=== PATIENT | male | born 1960 | race Caucasian/White ===

== ENCOUNTER 2016-11-13 09:31 | Emergency (ER) | payer SELFPAY ==
[2016-11-13 09:40] VITALS: BP 127/79; PULSE 78; RESP 20; TEMP 98; O2SAT 98
--- NOTE | 2016-11-13 09:58 | C.PDOC ---
History Of Present Illness Documentation on down time paper chart Disregard everything except the Dispo section Time Seen by Provider: 11/13/16 09:54 Chief Complaint (Nursing): Eye Problem Past Medical History Vital Signs: Last Vital Signs Temp 98 F 11/13/16 09:40 Pulse 78 11/13/16 09:40 Resp 20 11/13/16 09:40 BP 127/79 11/13/16 09:40 Pulse Ox 98 11/13/16 10:17 - Medical History PMH: Arthritis Surgical History: Appendectomy Family History: States: Unknown Family Hx - Social History Hx Tobacco Use: No Hx Alcohol Use: No Hx Substance Use: No ED Course And Treatment O2 Sat by Pulse Oximetry: 98 Disposition - Disposition Referrals: Price Garza MD [Staff Provider] - [facility] [Outside] Disposition: HOME/ ROUTINE Disposition Time: 10:10 Condition: GOOD Additional Instructions: Call behavioral medical director Services to help arrange for an eye doctor Ophthalmologic Instructions: Pterygium (ED) Forms: General Discharge Instructions Print Language: ARABIC - Clinical Impression Clinical Impression: Pterygium
== END 2016-11-13 10:34 | disposition home or self-care (01) ==
LOC: C.ER 09:31
DX: H11.001 Unspecified pterygium of right eye (principal)

== ENCOUNTER 2016-12-27 10:43 | Emergency (ER) | payer SELFPAY ==
[2016-12-27 10:54] VITALS: BP 121/74; PULSE 82; RESP 16; TEMP 98.4; O2SAT 98
--- NOTE | 2016-12-27 11:41 | C.PDOC ---
History Of Present Illness 56 year old male presents to the ED with complaints of discoloration to the skin noticed months ago. Patient states discolorations began on the forearms and was found on the chest and chin prompting visit. He denies any pain, swelling, or any pruritus. Time Seen by Provider: 12/27/16 11:31 Chief Complaint (Nursing): Abnormal Skin Integrity History Per: Patient History/Exam Limitations: no limitations Onset/Duration Of Symptoms: Persistent (noticed months ago but now neginning to spread ) Current Symptoms Are (Timing): Still Present Location Of Injury: Right: Forearm, Left: Forearm Recent travel outside of the [place]: No Past Medical History Reviewed: Historical Data, Nursing Documentation, Vital Signs Vital Signs: Last Vital Signs Temp 98.4 F 12/27/16 10:51 Pulse 82 12/27/16 10:51 Resp 16 12/27/16 10:51 BP 121/74 12/27/16 10:51 Pulse Ox 98 12/27/16 11:41 - Medical History PMH: Arthritis Surgical History: Appendectomy Family History: States: Unknown Family Hx - Social History Hx Tobacco Use: No Hx Alcohol Use: No Hx Substance Use: No - Immunization History Hx Tetanus Toxoid Vaccination: Yes Hx Influenza Vaccination: No Hx Pneumococcal Vaccination: No Review Of Systems Constitutional: Negative for: Fever, Chills Cardiovascular: Negative for: Chest Pain Respiratory: Negative for: Shortness of Breath Skin: Positive for: Other (discolorations to forearm, chin, and chest ) Physical Exam - Physical Exam Appears: Non-toxic, No Acute Distress Skin: Warm, Dry, Other (small spots of round sharply bordered light discolorations ) Head: Atraumatic Eye(s): bilateral: Normal Inspection, PERRL, EOMI Oral Mucosa: Moist Neck: Supple Chest: Symmetrical, No Deformity Cardiovascular: Rhythm Regular Respiratory: Normal Breath Sounds, No Rhonchi, No Wheezing Neurological/Psych: Oriented x3 ED Course And Treatment O2 Sat by Pulse Oximetry: 98 (room air ) Progress Note: Patient was instructed to follow up with waste transportation technician. Disposition - Disposition Disposition: HOME/ ROUTINE Disposition Time: 11:38 Condition: STABLE Additional Instructions: Follow up with PMD and Service Agent within 1-2 days. Return to ED if feel worse. Instructions: Dermatitis (ED), Autoimmune Disease (ED) Print Language: URDU - Clinical Impression Clinical Impression: Discoloration of skin - Scribe Statement The provider has reviewed the documentation as recorded by the Scribe Kristin Guerin All medical record entries made by the Davidibbethel were at my direction and personally dictated by me. I have reviewed the chart and agree that the record accurately reflects my personal performance of the history, physical exam, medical decision making, and the department course for this patient. I have also personally directed, reviewed, and agree with the discharge instructions and disposition.
== END 2016-12-27 11:43 | disposition home or self-care (01) ==
LOC: C.ER 10:43
DX: L98.8 Other specified disorders of the skin and subcutaneous tissue (principal)

== ENCOUNTER 2018-06-07 09:53 | Emergency (ER) | payer OTHER ==
[2018-06-07] MEDS ORDERED: Sodium Chloride 0.9% 1,000 ML IV ONE (10:29)
[2018-06-07 11:03] LABS: URINE BILIRUBIN NEGATIVE (NEGATIVE); URINE BLOOD NEGATIVE (NEGATIVE); URINE CLARITY Clear (Clear); URINE COLOR Yellow (YELLOW); URINE GLUCOSE (UA) NORMAL (Normal); URINE LEUKOCYTE ESTERASE NEG Leu/uL (Negative); URINE PROTEIN NEGATIVE (NEGATIVE); URINE UROBILINOGEN NORMAL mg/dL (0.2-1.0)
[2018-06-07 11:04] LABS: BASO % 0.3 % (0.0-2.0); EOS # 0.1 K/uL (0.0-0.7); HEMOGLOBIN 15.5 g/dL (12.0-18.0); LYMPH # 2.3 K/uL (1.0-4.3); LYMPH % 36.3 % (20.0-40.0); MEAN CELL VOLUME 94.8 fL (80.0-94.0); MEAN CORPUSCULAR HGB CONC 34.8 g/dL (33.0-37.0); MEAN PLATELET VOLUME 8.5 fL (7.2-11.7); MONO # 0.5 K/uL (0.0-0.8); MONO % 8.1 % (0.0-10.0); NEUT # 3.4 K/uL (1.8-7.0); NEUT % 53.3 % (50.0-75.0); NRBC % 0.1 % (0.0-2.0); RBC 4.71 Mil/uL (4.40-5.90); RED CELL DISTRIBUTION WIDTH 13.1 % (11.5-14.5); WHITE BLOOD COUNT 6.4 K/uL (4.8-10.8)
[2018-06-07 11:15] LABS: INR 1.1; PROTHROMBIN TIME 12.3 SECONDS (9.7-12.2)
[2018-06-07 11:21] LABS: ALB/GLOB RATIO 1.4 (1.0-2.1); ALBUMIN 4.6 g/dL (3.5-5.0); ALT/SGPT 90 U/L (21-72); AST/SGOT 45 U/L (17-59); BLOOD UREA NITROGEN 14 mg/dL (9-20); CALCIUM 8.8 mg/dl (8.6-10.4); GFR NON-AFRICAN AMERICAN > 60; LIPASE 54 U/L (23-300)
--- NOTE | 2018-06-07 11:25 | C.PDOC ---
History Of Present Illness 57 yo male come in for evaluation of RUQ pain gradually developed for past 1 week. Pt reports, pain is localized, intermittent, worse with food intake. Pt denies high fever, chills, recent illness, CP, SOB, dyspnea, palpitation, V/D, back pain, UTI sx. At the time of evaluation, not in any apparent distress. Time Seen by Provider: 06/07/18 10:04 Chief Complaint (Nursing): Abdominal Pain History Per: Patient Past Medical History Reviewed: Historical Data, Nursing Documentation, Vital Signs Vital Signs: Last Vital Signs Temp 98.5 F 06/07/18 09:57 Pulse 81 06/07/18 09:57 Resp 16 06/07/18 09:57 BP 146/91 H 06/07/18 09:57 Pulse Ox 98 06/07/18 09:57 - Medical History PMH: Arthritis Denies: Chronic Kidney Disease Other PMH: Obese Surgical History: Appendectomy Family History: States: Unknown Family Hx - Social History Hx Tobacco Use: No Hx Alcohol Use: No Hx Substance Use: No - Immunization History Hx Tetanus Toxoid Vaccination: Yes Hx Influenza Vaccination: No Hx Pneumococcal Vaccination: No Review Of Systems Except As Marked, All Systems Reviewed And Found Negative. Constitutional: Negative for: Fever, Chills ENT: Negative for: Throat Pain Cardiovascular: Negative for: Chest Pain Respiratory: Negative for: Cough, Shortness of Breath, Wheezing Gastrointestinal: Positive for: Nausea, Abdominal Pain. Negative for: Vomiting, Diarrhea Genitourinary: Negative for: Dysuria Musculoskeletal: Negative for: Neck Pain, Back Pain Skin: Negative for: Rash Neurological: Negative for: Headache Physical Exam - Physical Exam Appears: Well, Non-toxic, No Acute Distress Skin: Normal Color, Warm, Dry Eye(s): bilateral: PERRL Nose: No Discharge Oral Mucosa: Moist Neck: Trachea Midline, Supple Cardiovascular: Rhythm Regular Respiratory: No Decreased Breath Sounds, No Accessory Muscle Use, No Stridor, No Wheezing Gastrointestinal/Abdominal: Soft, Tenderness (mild RUQ), No Distention, No Guarding, No Rebound Back: No CVA Tenderness Extremity: Normal ROM, No Pedal Edema Neurological/Psych: Oriented x3, Normal Speech ED Course And Treatment - Laboratory Results Result Diagrams: 06/07/18 10:29 06/07/18 10:29 Lab Interpretation: Normal O2 Sat by Pulse Oximetry: 98 Pulse Ox Interpretation: Normal - CT Scan/US CT A/P w/IV contrast Other Rad Studies (CT/US): Radiology Report Reviewed CT/US Interpretation: HISTORY: RUQ abd pain. COMPARISON: Not available. TECHNIQUE: Contrast dose: 100 mL Visipaque 320. Radiation dose: Total exam DLP = 903.26 mGy-cm. This CT exam was performed using one or more of the following dose reduction techniques: Automated exposure control, adjustment of the mA and/or kV according to patient size, and/or use of iterative reconstruction technique. FINDINGS: LOWER THORAX: Calcified granuloma noted in right middle lobe. No infiltrate/effusion. LIVER: Unremarkable. No gross lesion or ductal dilatation. GALLBLADDER AND BILE DUCTS: Unremarkable. PANCREAS: Unremarkable. No gross lesion or ductal dilatation. SPLEEN: Unremarkable. ADRENALS: Unremarkable. No mass. KIDNEYS AND URETERS: Unremarkable. No hydronephrosis. No solid mass. VASCULATURE: Unremarkable. No aortic aneurysm. No aortic atherosclerotic calcification or mural plaque present. BOWEL: Sigmoid diverticulosis without evidence of diverticulitis. No bowel obstruction. No other abnormal bowel loops are identified. APPENDIX: Not definitely identified. No secondary findings to suggest acute appendicitis. PERITONEUM: No ascites or pneumoperitoneum. Possible postoperative changes of right herniorrhaphy. Please correlate with history. LYMPH NODES: No retroperitoneal or pelvic lymphadenopathy. Incidental 9 mm left perirectal lymph node common nonspecific. BLADDER: Bladder wall mildly thickened raising suspicion of cystitis. Differential diagnosis includes cystitis or neoplasm. Consider further evaluation. Correlate with urinalysis.. REPRODUCTIVE: Normal prostate. BONES: No acute fracture. OTHER FINDINGS: There is cutaneous thickening along the right medial upper thigh just inferior to the perineum, without associated stranding of the subcutaneous fat. Nevertheless, the possibility of cellulitis must be considered. Please correlate with direct visual inspection. IMPRESSION: Mild thickening of bladder wall. Please correlate with urinalysis for possible cystitis. Rule out neoplasm. Focal cutaneous thickening along right upper medial thigh just inferior to perineum. Please correlate with direct visual examination. Incidental 9 mm left perirectal lymph node common nonspecific. Progress Note: On re-eval, afebrile, hemodynamicaly stable. non-toxic, tolearte Po well in Ed. Neck: SUpple, (-) meningeal sign. Lungs: CTA B/L, BS equal B/L. CVS: (+) S1S2, reg. Abd: benign, (-) guarding, (-) rebound. Neurologicaly intact. Blood work review and appears without acute abnormalities. CT A/P review and discussed with pt, mild bladder wall thickening r/o neoplasm. Pt advised and ref. to f/u with PMD, Urology in 1-2 days for re-evaluation. return to Ed if any worsening or new changes. Disposition Counseled Patient/Family Regarding: Studies Performed, Diagnosis, Need For Followup, Rx Given - Disposition Referrals: [facility] [Outside] Russell Hook Jr., MD [Staff Provider] - Disposition: HOME/ ROUTINE Disposition Time: 13:30 Condition: STABLE Instructions: Bladder Cancer, Urinary Incontinence in Men Forms: [employer] (Greenlandic) Print Language: [place] CITIZEN - Clinical Impression Clinical Impression: Abdominal pain
[2018-06-07] MEDS ORDERED: Iodixanol 320 MG/ML 100 ML BOTTLE IV ONE (12:38)
--- NOTE | 2018-06-07 13:23 | CT ---
Date of service: 06/07/2018 PROCEDURE: CT Abdomen and Pelvis with contrast HISTORY: RUQ abd pain COMPARISON: Not available TECHNIQUE: Contrast dose: 100 mL Visipaque 320 Radiation dose: Total exam DLP = 903.26 mGy-cm. This CT exam was performed using one or more of the following dose reduction techniques: Automated exposure control, adjustment of the mA and/or kV according to patient size, and/or use of iterative reconstruction technique. FINDINGS: LOWER THORAX: Calcified granuloma noted in right middle lobe. No infiltrate/effusion. LIVER: Unremarkable. No gross lesion or ductal dilatation. GALLBLADDER AND BILE DUCTS: Unremarkable. PANCREAS: Unremarkable. No gross lesion or ductal dilatation. SPLEEN: Unremarkable. ADRENALS: Unremarkable. No mass. KIDNEYS AND URETERS: Unremarkable. No hydronephrosis. No solid mass. VASCULATURE: Unremarkable. No aortic aneurysm. No aortic atherosclerotic calcification or mural plaque present. BOWEL: Sigmoid diverticulosis without evidence of diverticulitis. No bowel obstruction. No other abnormal bowel loops are identified. APPENDIX: Not definitely identified. No secondary findings to suggest acute appendicitis. PERITONEUM: No ascites or pneumoperitoneum. Possible postoperative changes of right herniorrhaphy. Please correlate with history. LYMPH NODES: No retroperitoneal or pelvic lymphadenopathy. Incidental 9 mm left perirectal lymph node common nonspecific. BLADDER: Bladder wall mildly thickened raising suspicion of cystitis. Differential diagnosis includes cystitis or neoplasm. Consider further evaluation. Correlate with urinalysis.. REPRODUCTIVE: Normal prostate BONES: No acute fracture. OTHER FINDINGS: There is cutaneous thickening along the right medial upper thigh just inferior to the perineum, without associated stranding of the subcutaneous fat. Nevertheless, the possibility of cellulitis must be considered. Please correlate with direct visual inspection. IMPRESSION: Mild thickening of bladder wall. Please correlate with urinalysis for possible cystitis. Rule out neoplasm. Focal cutaneous thickening along right upper medial thigh just inferior to perineum. Please correlate with direct visual examination. Incidental 9 mm left perirectal lymph node common nonspecific.
[2018-06-07 14:13] VITALS: BP 136/84; PULSE 90; RESP 18; TEMP 98.2; O2SAT 99
== END 2018-06-07 14:18 | disposition home or self-care (01) ==
LOC: C.ER 09:53
DX: R10.11 Right upper quadrant pain (principal)
CPT/HCPCS: 74177; 80053; 81001; 83690; 85025; 85610; 85730; 96374; 96375; 99284; J1885; J2405; J7030; Q9967

== ENCOUNTER 2018-07-09 10:10 | Outpatient (CLI) | payer OTHER | END 2018-07-09 10:11 | disposition home or self-care (01) | LOC: C.LAB 10:10 ==

== ENCOUNTER 2018-07-26 10:20 | Day surgery (SDC) | payer OTHER ==
[2018-07-20 14:56] VITALS: BMI 37.9
[2018-07-26] MEDS ORDERED: Propofol 10 mg/ml Inj (20 ML) ONE (13:05)
[2018-07-26] MEDS ORDERED: Ciprofloxacin 400mg/200ml D5W 400 MG/200 ML BAG IVPB ONE (13:05)
[2018-07-26] MEDS ORDERED: Gentamicin 80 mg in 0.9% NS 160 MG/200 ML BAG IVPB ONE (13:05)
[2018-07-26] MEDS ORDERED: Lidocaine 2% Jelly (Uro-Jet) ONE (13:06)
--- NOTE | 2018-07-26 13:29 | PCM.SURG1 ---
Surgeon's Initial Post Op Note - Surgeon's Notes Surgeon: monster Setup Technician: michael Type of Anesthesia: General Mask Anesthesia Administered By: staff Pre-Operative Diagnosis: Hematuria Bladder mass Operative Findings: same Post-Operative Diagnosis: same Operation Performed: Monster Specimen/Specimens Removed: NA Estimated Blood Loss: EBL {In ML}: 0 Blood Products Given: N/A Post-Op Condition: Good Date of Surgery/Procedure: 07/26/18 Time of Surgery/Procedure: 13:28
[2018-07-26] MEDS ORDERED: Lactated Ringer's 1,000 ML IV SCH (13:45)
[2018-07-26 15:02] VITALS: BP 147/83; PULSE 81; RESP 18; TEMP 98; O2SAT 98
--- NOTE | 2018-07-27 10:50 | RAD ---
Date of service: 07/26/2018 HISTORY: CYSTOSCOPY COMPARISON: None available. FINDINGS: BOWEL: Normal. No obstruction. BONES: Diffuse lumbar spondylosis. Mild bilateral SI joint sclerotic arthrosis. Mild bilateral hip arthrosis. L5-S1 facet mild hypertrophic arthrosis. 5 mm ossification possible bone island projecting over the right half of the lumbar vertebrae. Appears too far central and too large to be right ureteral calculus. OTHER FINDINGS: No gross pelvic calcifications calculi seen. IMPRESSION: Osseous and joint changes as above. Other findings as above.
--- NOTE | 2018-07-27 20:06 | OP ---
PROCEDURE DATE: 07/26/2018 PREOPERATIVE DIAGNOSIS: Bladder mass. POSTOPERATIVE DIAGNOSIS: Inflammatory mass at the bladder neck, enlarged prostate with bladder outlet obstruction. PROCEDURE: Cystoscopy, bladder biopsy and fulguration. DESCRIPTION OF PROCEDURE: The procedure as follows: Prior to the procedure, the detailed informed consent was obtained from the patient. The limitations of this procedure and possible need for further procedures were discussed with the patient. The patient was draped and prepped in the usual manner, received prophylactic antibiotics. He was cystoscoped with a #21 Storz panendoscope. The pendulous and membranous urethras were normal. The prostatic urethra showed trilobe hypertrophy with moderately severe outlet obstruction. The bladder was entered atraumatically. There was a single what appeared to be inflammatory mass on the trigone. This was biopsied and was fulgurated. The remainder of the bladder appeared slightly erythematous. No evidence of urothelial tumor or stone. Both ureteral orifices effluxed clear urine. Based on these findings, the pathology is benign. This appears to be due to chronic bladder outlet obstruction and possibly previous infection. The patient will need long-term therapy for BPH either medicine or laser prostatectomy. Russell Hook MD
== END 2018-07-26 15:10 | disposition home or self-care (01) ==
LOC: C.SDS 10:20
PROVIDERS: ATTEND Urology
DX: N32.89 Other specified disorders of bladder (principal); R31.9 Hematuria, unspecified; N30.91 Cystitis, unspecified with hematuria; N32.0 Bladder-neck obstruction; N40.0 Benign prostatic hyperplasia without lower urinary tract symptoms
CPT/HCPCS: 52204; 74018; 88305; J0744; J1580; J2270

== ENCOUNTER 2018-11-01 09:36 | Emergency (ER) | payer OTHER ==
[2018-11-01 09:37] VITALS: BMI 37.9
[2018-11-01 09:44] VITALS: BP 149/76; PULSE 88; RESP 18; TEMP 98.6; O2SAT 97
--- NOTE | 2018-11-01 09:55 | C.PDOC ---
History Of Present Illness VIA TRANS CO R INNER EYE REDNESS AND GROWTH X 1 YR. PROGRESSIVELY BLURRED VISION. DENIES PAIN, DISCHARGE, EYELID SWELLING. PS GROWTH STARTING TO COVER HIS EYE. NO PRIOR EVAL FOR SAME EXAM NAD NONTOXIC HEENT R EYE +PTERYGIUM EXTENDING FROM MEDIAL EYE TO 2-4 O CLOCK MEDIAL ASPECT OF CORNEA. +CONJ ERYTHEMA R MEDIAL EYE. NO DISCHARGE, CRUSTING, EYELID SWELL. EOMI. NO PHOTOPHOBIA. PERRLA. NO PERIORB ABN REMAINDER NEG MDM CHRONIC CONJ MASS AND ERYTHEMA. NO ACUTE FINDINGS. ADVISED NEED FOR SPECIALIST EVAL. REFERRAL CLINIC AND OPTHO GIVEN Time Seen by Provider: 11/01/18 09:45 Chief Complaint (Nursing): Eye Problem History Per: Supervisor Ovens History/Exam Limitations: no limitations Onset/Duration Of Symptoms: Days Current Symptoms Are (Timing): Still Present Severity: Moderate Past Medical History Reviewed: Historical Data, Nursing Documentation, Vital Signs Vital Signs: Last Vital Signs Temp 98.6 F 11/01/18 09:41 Pulse 88 11/01/18 09:41 Resp 18 11/01/18 09:41 BP 149/76 11/01/18 09:41 Pulse Ox 97 11/01/18 09:41 Primary Care Provider: FAMILY PROVIDER,NO - Medical History PMH: Arthritis Denies: Chronic Kidney Disease Surgical History: Appendectomy Family History: States: No Known Family Hx - Social History Hx Tobacco Use: No Hx Alcohol Use: No Hx Substance Use: No - Immunization History Hx Tetanus Toxoid Vaccination: Yes Hx Influenza Vaccination: No Hx Pneumococcal Vaccination: No Review Of Systems Except As Marked, All Systems Reviewed And Found Negative. Constitutional: Negative for: Fever, Chills Eyes: Positive for: Redness (right eye redness). Negative for: Pain Physical Exam - Physical Exam Appears: Non-toxic, No Acute Distress Skin: Normal Color, Warm, Dry Head: Normacephalic Eye(s): bilateral: PERRL, EOMI, right: Other (pterygium extending from medial eye to 2-4 o clock medial aspect of cornea, conjunctival erythema to medial eye, no discharge, no crusting, no eyelid swelling, no photophobia, no periorbital abnormality) Respiratory: Other (NARD) Neurological/Psych: Oriented x3, Normal Speech ED Course And Treatment O2 Sat by Pulse Oximetry: 97 (RA) Pulse Ox Interpretation: Normal Medical Decision Making Medical Decision Making: CONJ MASS AND ERYTHEMA. NO ACUTE FINDINGS. ADVISED NEED FOR SPECIALIST EVAL. REFERRAL CLINIC AND OPTHO GIVEN Disposition - Disposition Referrals: [facility] [Outside] [facility] [Outside] Bronson Beard [Staff Provider] - Disposition: HOME/ ROUTINE Disposition Time: 09:49 Condition: GOOD Additional Instructions: Seguimiento en clnica para evaluacin especializada. Instructions: Pterygium (DC) Forms: [employer] (Malay) Print Language: ESTONIAN - Clinical Impression Clinical Impression: Pterygium, Eye redness - Scribe Statement The provider has reviewed the documentation as recorded by the Scribe Clark Guerrero Provider Attestation: All medical record entries made by the Scribe were at my direction and personally dictated by me. I have reviewed the chart and agree that the record accurately reflects my personal performance of the history, physical exam, medical decision making, and the department course for this patient. I have also personally directed, reviewed, and agree with the discharge instructions and disposition.
== END 2018-11-01 10:11 | disposition home or self-care (01) ==
LOC: C.ER 09:36
DX: H11.001 Unspecified pterygium of right eye (principal); H57.89 Other specified disorders of eye and adnexa

== ENCOUNTER 2018-11-04 11:00 | Outpatient (CLI) | payer OTHER | END 2018-11-04 11:01 | disposition home or self-care (01) | LOC: C.LAB 11:00 ==